=== PATIENT | female | born 1975 | race Caucasian/White ===

== ENCOUNTER 2024-05-07 18:35 | Emergency (ER) | payer OTHER ==
[2024-05-07 18:51] VITALS: BP 199/115; PULSE 104; RESP 20; TEMP 100.6; BMI 34.9
[2024-05-07] MEDS ORDERED: methylPREDNISolone NA SUCC 125 MG/2 ML VIAL ONE (19:17)
[2024-05-07] MEDS: methylPREDNISolone NA SUCC 125 MG/2 ML VIAL IVPUSH ONE (19:25)
[2024-05-07 19:33] LABS: HEMATOCRIT 25.4 % (32.4-45.2); HEMOGLOBIN 7.5 G/dL (10.7-15.3); MCH 21.2 pg (25.7-33.7); MCHC 29.7 g/dl (32.0-36.0); MEAN CELL VOLUME 71.3 fl (80-96); MEAN PLT VOLUME 8.6 fl (7.5-11.1); PLATELET COUNT 327.8 10^3/uL (134-434); RBC 3.56 10^6/uL (3.60-5.2); RDW 19.2 % (11.6-15.6); WHITE BLOOD COUNT 9.5 10^3/uL (4.0-10.8)
[2024-05-07] MEDS: methylPREDNISolone NA SUCC 40 MG/1 ML VIAL IVPUSH SCH (19:40)
[2024-05-07] MEDS: ALBUTEROL SO4 2.5/IPRATROPIUM 0.5 INH SOL 3 ML VIAL.NEB. NEB SCH (19:41)
[2024-05-07] MEDS ORDERED: ALBUTEROL SO4 2.5/IPRATROPIUM 0.5 INH SOL 3 ML VIAL.NEB. NEB ONE (19:41)
[2024-05-07 19:51] LABS: ALBUMIN 4.3 g/dl (3.4-5.0); BILIRUBIN,TOTAL 0.6 mg/dl (0.2-1); CALCIUM 9.4 mg/dl (8.5-10.1); CREATININE 0.7 mg/dl (0.6-1.3); POTASSIUM 4.3 mmol/L (3.5-5.1); TOT PROT 7.9 g/dl (6.4-8.2)
[2024-05-07] MEDS ORDERED: ALBUTEROL SO4 HFA INHALER IH ONE (20:44)
[2024-05-07] MEDS: ALBUTEROL SO4 HFA INHALER IH PRN (20:46)
[2024-05-07] MEDS: FERROUS SO4 325 MG TABLET (FP) PO SCH (20:59)
== END 2024-05-07 21:05 | disposition home or self-care (01) ==
LOC: FER 18:35
PROC: 3E0F7GC Introduction of Other Therapeutic Substance into Respiratory Tract, Via Natural or Artificial Opening (ICD-10-PCS; principal; 2024-05-07)
DX: J45.909 Unspecified asthma, uncomplicated (principal); R00.0 Tachycardia, unspecified; Z20.822 Contact with and (suspected) exposure to COVID-19
CPT/HCPCS: 0241U-QW; 36415; 80053; 85027; 93005; 99284-25